=== PATIENT | female | born 1960 | race African-American/Black ===

== ENCOUNTER 2022-02-04 14:12 | Inpatient (IN) | payer MEDICAID, OTHER ==
[~2022-02-04] VITALS: Ht 157.5 cm; Wt 86.3 kg
[2022-02-04 14:55] LABS: Basophils # (auto) 0 10 ^3/uL (0-0.2); Basophils % (auto) 0.5 % (0.0-2.0); Eosinophils # (auto) 0.2 10 ^3/uL (0-0.8); Eosinophils % (auto) 3.7 % (0.0-7.0); Hematocrit 42.4 % (36.0-46.0); Hemoglobin 14.1 g/dL (12.2-16.2); Lymphocytes % (auto) 34.9 % (10.0-50.0); Mean Corpuscular Hemoglobin 28.9 pg (28.0-32.0); Mean Corpuscular Hgb Conc. 33.2 g/dL (32.0-36.0); Monocytes # (auto) 0.5 10 ^3/uL (0-1.3); Monocytes % (auto) 8.4 % (0.0-12.0); Neutrophils % (auto) 52.5 % (37.0-80.0); Nucleated Red Blood Cells % 0.1 %; Red Blood Cells 4.87 10^6/uL (4.0-5.20); Red Cell Distribution Width 13.9 % (11.8-14.3); White Blood Cell 5.6 10^3/uL (4.4-10.8)
[2022-02-04 15:19] LABS: Albumin 4.1 g/dL (3.4-5.0); BUN/Creatinine Ratio 13.4; Potassium 4.3 mmol/L (3.5-5.1)
[2022-02-04 15:23] LABS: Bilirubin, Total 0.7 mg/dL (0.2-1.0); Total Protein 7.6 g/dL (6.4-8.2)
[2022-02-04 15:53] LABS: INR 1.03 (0.9-1.15); Partial Thromboplastin Time 30.6 sec (24.6-33.4)
[2022-02-04] MEDS ORDERED: ONDANSETRON HCL 4 MG/2 ML VIAL IV PRN (18:30)
[2022-02-04] MEDS ORDERED: HYDROcodone-ACET 5/325MG TAB PO PRN (18:30)
[2022-02-04] MEDS ORDERED: DOCUSATE SOD 100 MG CAP PO PRN (18:30)
[2022-02-04] MEDS ORDERED: MORPHINE SULFATE INJ 2 MG/ml SYRG IV PRN (18:30)
[2022-02-04] MEDS ORDERED: ACETAMINOPHEN 325 MG TAB PO PRN (18:30)
[2022-02-04] MEDS ORDERED: NITROGLYCERIN 0.4 MG SL TAB SL PRN (18:30)
[2022-02-04] MEDS ORDERED: OXYB5TAB61 PO (21:01)
[2022-02-04] MEDS ORDERED: PARO30TA99 PO (21:01)
[2022-02-04] MEDS ORDERED: ATORVASTATIN 20 MG TAB PO SCH (22:00)
[2022-02-04] MEDS: OXYBUTYNIN CHL 5 MG TAB PO SCH (22:40)
[2022-02-05 05:00] VITALS: BP 106/56
[2022-02-05 06:56] LABS: Basophils # (auto) 0 10 ^3/uL (0-0.2); Basophils % (auto) 0.5 % (0.0-2.0); Eosinophils # (auto) 0.2 10 ^3/uL (0-0.8); Eosinophils % (auto) 3.8 % (0.0-7.0); Hematocrit 40.1 % (36.0-46.0); Hemoglobin 13.5 g/dL (12.2-16.2); Lymphocytes # (auto) 1.6 10 ^3/uL (0.4-5.4); Lymphocytes % (auto) 27.8 % (10.0-50.0); Mean Corpuscular Hgb Conc. 33.6 g/dL (32.0-36.0); Mean Corpuscular Volume 86.2 fL (80.0-100.0); Monocytes # (auto) 0.6 10 ^3/uL (0-1.3); Neutrophils # (auto) 3.3 10 ^3/uL (1.6-8.6); Neutrophils % (auto) 57.9 % (37.0-80.0); Nucleated Red Blood Cells % 0.1 %; Red Blood Cells 4.65 10^6/uL (4.0-5.20); Red Cell Distribution Width 13.8 % (11.8-14.3); White Blood Cell 5.6 10^3/uL (4.4-10.8)
[2022-02-05 07:00] LABS: BUN/Creatinine Ratio 17.1; Calcium 8.6 mg/dL (8.5-10.1)
[2022-02-05 09:21] VITALS: BP 114/68
[2022-02-05] MEDS ORDERED: ASPirin 81 mg TAB PO SCH (10:00)
[2022-02-05] MEDS ORDERED: ENOXAPARIN SOD 40 MG/0.4 ML SYRINGE SC SCH (10:00)
[2022-02-05] MEDS ORDERED: PARoxetine 20 MG TAB PO SCH (10:00)
[2022-02-05] MEDS: OXYBUTYNIN CHL 5 MG TAB PO SCH (11:07)
[2022-02-05] MEDS ORDERED: ASPI-325 PO (11:33)
[2022-02-05 13:00] VITALS: BP 116/63
== END 2022-02-05 17:17 | disposition home health service (06) | DRG 203 ==
LOC: ER 14:12 → TELE 18:29 → TELE-WESTW 23:00
PROVIDERS: ADMIT Nurse Practitioner Family; ATTEND Internal Medicine
DX: R07.89 Other chest pain (principal); E11.9 Type 2 diabetes mellitus without complications; E66.9 Obesity, unspecified; I10 Essential (primary) hypertension; Z80.9 Family history of malignant neoplasm, unspecified; Z87.891 Personal history of nicotine dependence; Z68.34 Body mass index [BMI] 34.0-34.9, adult
CPT/HCPCS: 36415; 71045; 80048; 80053; 83735; 84484; 85025; 85379; 85610; 85730; 93005; 93306; G0378

== ENCOUNTER 2024-04-19 08:21 | Inpatient (IN) | payer MEDICAID ==
[~2024-04-19] VITALS: Ht 157.5 cm; Wt 88.7 kg
[~2024-04-19 08:21] MED LIST: ASPI-325 PO; OXYB5TAB14 PO; PARO-181 PO
--- NOTE | 2024-04-19 09:05 | ED.PDOC ---
HPI Comments 64 year old female presents to the ED with chief complaint of chest pain. Patient reports that she has been experiencing chest pain with associated weakness, abdominal pain, BUSTOS, and excessive gas for the past few days. Patient relays that she has been previously seen in [facility] for heart related issues. Patient denies any N/V/D, dizziness, headache, SOB, or cough. Chief Complaint: Chest Pain Time Seen by MD: 09:02 Primary Care Provider: KIRSTIN Pro Notes: Nurses Notes, Medications, Allergies Allergies: Coded Allergies: NO KNOWN ALLERGIES (Unverified , 02/04/22) Home Meds Active Scripts Aspirin (Aspirin Low Dose) 81 Mg Tab, 81 MG PO DAILY, #30 TAB Prov:LEANNE CASTRO MD 02/05/22 Reported Medications Paroxetine HCl (Paroxetine Hydrochloride) 30 Mg Tab, 30 MG PO DAILY 02/04/22 Oxybutynin Chloride (Oxybutynin Chloride) 5 Mg Tab, 5 MG PO BID 02/04/22 Information Source: Patient Mode of Arrival: Ambulatory Severity: Moderate Timing: Hours Duration: Since onset Prehospital treatment: None Location: Substernal Radiation: No Radiation Onset: At Rest Cardiac Risk Factors: HTN, Diabetes PE Risk Factors: None History of: Similar pain in past Associated Signs and Symptoms: None Past Medical History PAST MEDICAL HISTORY: DM, HTN Surgical History: , Hernia Repair [employer] History: Denies all [employer] Hx Family History Family History: Reviewed,noncontributory to illness, Family hx of Cancer Social History Smoker: Non-Smoker Alcohol: Denies ETOH Use Drugs: Denies Drug Use Lives In: Home Constitutional: reports: weakness; denies: chills, diaphoresis, fatigue, fever, malaise, sweats, others EENTM: denies: blurred vision, double vision, ear bleeding, ear discharge, ear drainage, ear pain, ear ringing, eye pain, eye redness, hearing loss, mouth pain, mouth swelling, nasal discharge, nose bleeding, nose congestion, nose pain, photophobia, tearing, throat pain, throat swelling, voice changes, others Respiratory: denies: cough, hemoptysis, orthopnea, SOB at rest, shortness of breath, SOB with excertion, stridor, wheezing, others Cardiovascular: reports: chest pain; denies: dizzy spells, diaphoresis, Dyspnea on exertion, edema, irregular heart beat, left arm pain, lightheadedness, palpitations, PND, syncope, others Gastrointestinal: reports: abdominal pain; denies: abdomen distended, blood streaked bowels, constipated, diarrhea, dysphagia, difficulty swallowing, hematemesis, melena, nausea, poor appetite, poor fluid intake, rectal bleeding, rectal pain, vomiting, others Genitourinary: denies: abnormal vagina bleeding, burning, dyspareunia, dysuria, flank pain, frequency, hematuria, incontinence, pain, , vagina discharge, urgency, others Neurological: reports: headache; denies: dizziness, fainting, left sided numbness, left sided weakness, numbness, paresthesia, pre-existing deficit, right sided numbness, right sided weakness, seizure, speech problems, tingling, tremors, weakness, others Musculoskeletal: denies: back pain, gout, joint pain, joint swelling, muscle pain, muscle stiffness, neck pain, others Integumetry: denies: bruises, change in color, change in hair/nails, dryness, laceration, lesions, lumps, rash, wounds, others Allergic/Immunocompromised: denies: Difficulty Healing, Frequent Infections, Hives, Itching, others Hematologic/Lymphatic: denies: anemia, blood clots, easy bleeding, easy bruising, swollen glands, others Endocrine: denies: excessive hunger, excessive sweating, excessive thirst, excessive urination, flushing, intolerance to cold, intolerance to heat, unexplained weight gain, unexplained weight loss, others Psychiatric: denies: anxiety, bipolar disorder, depression, hopeless, panic disorder, schizophrenia, sleepless, suicidal, others All Other Systems: Reviewed and Negative Physical Exam General Appearance: Moderate Distress, Normal HEENT: Normal ENT Inspection, PERRL/EOMI Neck: Full Range of Motion, Non-Tender, Normal, Normal Inspection Respiratory: Chest Non-Tender, Lungs Clear, No Accessory Muscle Use, No Respiratory Distress, Normal Breath Sounds Cardiovascular: No Edema, No JVD, No Murmur, No Gallop, Normal Peripheral Pulses, Regular Rate/Rhythm Breast Exam: Deferred Gastrointestinal: No Organomegaly, Non Tender, No Pulsatile Mass, Normal Bowel Sounds, Soft Genitalia: Deferred Pelvic: Deferred Rectal: Deferred Extremities: No calf tenderness, Normal capillary refill, Normal inspection, Normal range of motion, Non-tender, No pedal edema Musculoskeletal : Apperance: Normal Neurologic: Alert, cable swager II-XII nml as Tested, No Motor Deficits, Normal Affect, Normal Mood, No Sensory Deficits Cerebellar Function: Normal Reflexes: Normal Skin: Dry, Normal Color, Warm Peripheral Pulses: 3+ Radial (R), 3+ Radial (L) Lymphatic: No Adenopathy Was a procedure done? Was a procedure done?: No CP Differential Dx Differential Diagnosis: A-fib, A-Flutter, Angina, Anxiety / Panic Attack, Atrial Dysrhythmia, Electrolyte Disorder X-Ray, Labs, Meds, VS Vital Signs Date Time Temp Pulse Resp B/P (MAP) Pulse Ox O2 Delivery O2 Flow Rate FiO2 04/19/24 13:10 74 18 145/77 (99) 97 04/19/24 10:01 98.4 75 17 131/91 (104) 97 98.4 04/19/24 10:01 75 17 97 Room Air 04/19/24 09:45 83 18 98 Room Air* 0 21 04/19/24 08:30 98.7 83 16 138/99 (112) 99 04/19/24 08:27 88 Lab Test 04/19/24 11:22 04/19/24 09:45 04/19/24 08:35 04/19/24 08:31 Range/Units Troponin I High Sensitivity < 3 L < 3 L < 3 L </=34 ng/L White Blood Count 5.6 4.4-10.8 10^3/uL Red Blood Count 4.64 4.0-5.20 10^6/uL Hemoglobin 14.0 12.2-16.2 g/dL Hematocrit 41.8 36.0-46.0 % Mean Corpuscular Volume 90.1 80.0-100.0 fL Mean Corpuscular Hemoglobin 30.1 28.0-32.0 pg Mean Corpuscular Hemoglobin Concent 33.4 32.0-36.0 g/dL Red Cell Distribution Width 13.8 11.8-14.3 % Platelet Count 235 140-450 10^3/uL Mean Platelet Volume 7.7 6.9-10.8 fL Neutrophils (%) (Auto) 54.7 37.0-80.0 % Lymphocytes (%) (Auto) 29.9 10.0-50.0 % Monocytes (%) (Auto) 7.8 0.0-12.0 % Eosinophils (%) (Auto) 7.2 H 0.0-7.0 % Basophils (%) (Auto) 0.4 0.0-2.0 % Neutrophils # (Auto) 3.1 1.6-8.6 10 ^3/uL Lymphocytes # (Auto) 1.7 0.4-5.4 10 ^3/uL Monocytes # (Auto) 0.4 0-1.3 10 ^3/uL Eosinophils # (Auto) 0.4 0-0.8 10 ^3/uL Basophils # (Auto) 0 0-0.2 10 ^3/uL Nucleated Red Blood Cells 0.1 % Sodium Level 144 136-145 mmol/L Potassium Level 4.4 3.5-5.1 mmol/L Chloride Level 108 H 98-107 mmol/L Carbon Dioxide Level 28 20-31 mmol/L Anion Gap 8 5-15 Blood Urea Nitrogen 8 L 9-23 mg/dL Creatinine 0.81 0.550-1.02 mg/dL Glomerular Filtration Rate Calc 82 >90 mL/min BUN/Creatinine Ratio 9.9 L 10.0-20.0 Serum Glucose 97 74-106 mg/dL Calcium Level 10.7 H 8.7-10.4 mg/dL Urine Color Light-yellow Yellow Urine Clarity Turbid H Clear Urine pH 7.0 5.0-9.0 Urine Specific [place] 1.021 1.001-1.035 Urine Protein Negative Negative Urine Ketones Negative Negative Urine Blood Negative Negative /uL Urine Nitrite Negative Negative Urine Bilirubin Negative Negative Urine Urobilinogen Normal Negative mg/dL Urine Leukocyte Esterase Negative Negative /uL Urine RBC <1 0 - 4 /hpf Urine WBC 3 0 - 5 /hpf Urine Squamous Epithelial Cells Mod <5 /hpf Urine Bacteria None seen None Seen /hpf Urine Mucus Few None Seen Urine Glucose Normal Normal mg/dL Current Medications Medications (Trade) Dose Ordered Sig/Konrad Route Start Time Stop Time Status Last Admin Pantoprazole Sodium (Protonix Tablet) 40 mg ONCE ONCE PO 04/19/24 10:45 04/19/24 10:46 DC 04/19/24 10:45 Patient alert pain Came in because of chest pain. Vitals stable. Answering all questions. Possible gastritis. Was given Protonix. EKG reviewed does not show any acute changes. WBC within normal limits. Hemoglobin within normal limits. Possibly will need stress test. Explained to the patient. Continue cardiac monitoring. Time of 1ST Reevaluation: 10:02 Reevaluation 1ST: Unchanged Patient Education/Counseling: Diagnosis, Treatment Family Education/Counseling: No Family Present Departure 1 Departure Time of Disposition: 15:39 Impression: Primary Impression: Chest pain of unknown etiology Additional Impression: Gastritis Qualified Codes: K29.00 - Acute gastritis without bleeding Disposition: ADMITTED INPATIENT Admit to: Med Surg Condition: Guarded Critical Care Note Critical Care Time?: Yes (45 min-critical care time only) Stability Stability form required: No Heart Score Heart Score: Heart Score Response (Comments) Value History Moderate Suspicious 1 EKG Normal 0 Age 45-64 1 Risk Factors 1 or 2 risk factors 1 Troponin Normal limit 0 Total 3 I personally scribed for JIN PRETTY MD ([email or web address]) on 04/19/24 at 09:05. Electronically submitted by Rogerio Moran ([email or web address]). JIN PRETTY MD Apr 19, 2024 09:05
[2024-04-19 09:45] VITALS: PULSE 83; RESP 18; O2SAT 98
[2024-04-19] MEDS ORDERED: PANTOPRAZOLE 40 MG/10 ML VIAL INJ IV ONE (10:15)
[2024-04-19] MEDS: PANTOPRAZOLE 40 MG TAB PO ONE (10:45)
[2024-04-19 10:51] LABS: Urine Bacteria None Seen /hpf (None Seen)
[2024-04-19 11:04] LABS: Basophils # (auto) 0 10 ^3/uL (0-0.2); Basophils % (auto) 0.4 % (0.0-2.0); Eosinophils # (auto) 0.4 10 ^3/uL (0-0.8); Eosinophils % (auto) 7.2 % (0.0-7.0); Hematocrit 41.8 % (36.0-46.0); Lymphocytes # (auto) 1.7 10 ^3/uL (0.4-5.4); Lymphocytes % (auto) 29.9 % (10.0-50.0); Mean Corpuscular Hemoglobin 30.1 pg (28.0-32.0); Mean Corpuscular Hgb Conc. 33.4 g/dL (32.0-36.0); Mean Corpuscular Volume 90.1 fL (80.0-100.0); Monocytes # (auto) 0.4 10 ^3/uL (0-1.3); Monocytes % (auto) 7.8 % (0.0-12.0); Neutrophils # (auto) 3.1 10 ^3/uL (1.6-8.6); Neutrophils % (auto) 54.7 % (37.0-80.0); Nucleated Red Blood Cells % 0.1 %; Platelet Count (auto) 235 10^3/uL (140-450); Potassium 4.4 mmol/L (3.5-5.1); Red Blood Cells 4.64 10^6/uL (4.0-5.20); Red Cell Distribution Width 13.8 % (11.8-14.3); Sodium 144 mmol/L (136-145); White Blood Cell 5.6 10^3/uL (4.4-10.8)
[2024-04-19 11:05] LABS: Anion Gap 8 (5-15); Carbon Dioxide 28 mmol/L (20-31)
[2024-04-19 11:05] LABS: Urine Blood Negative /uL (Negative); Urine Clarity Turbid (Clear); Urine Color Light-Yellow (Yellow); Urine Mucus FEW (None Seen); Urine Protein, UAD Negative (Negative); Urine Specific Gravity 1.021 (1.001-1.035); Urine Urobilinogen Normal (Negative); Urine WBC 3 /hpf (0 - 5)
[2024-04-19 11:10] LABS: BUN/Creatinine Ratio 9.9 (10.0-20.0); Glucose 97 mg/dL (74-106)
[2024-04-19 11:11] LABS: Blood Urea Nitrogen 8 mg/dL (9-23); Calcium 10.7 mg/dL (8.7-10.4); Chloride 108 mmol/L (98-107)
--- NOTE | 2024-04-19 12:29 | DVHHP2 ---
History of Present Illness Reason for Visit: Chest pain History of Present Illness Magi Moy is a 64-year-old female with past medical history of diabetes, hypertension, , and hernia repair who presents to the ED today for chest pain, weakness, abdominal pain, headache, and gas x 1 day. She reports th at she had a right knee tear5 years ago and utilizes a cane for ambulation. Patient also reports that she has been having some neck spasms that radiates down to the left arm and she was supposed to get steroid injections. He denies abdominal pain, nausea, vomiting, diarrhea, and back pain. Cardiovascular: HTN Endocrine: Diabetes Past Surgical History: , Hernia Repair Family History: Cancer Smoke: No ALCOHOL: occassional Drugs: None Lives: with Family Domestic Violence: Neg Review of Systems Constitutional: Yes: Weakness; No: Fever, Chills, Sweats, Malaise, Other Eyes: No: Pain, Vision change, Conjunctivae inflammation, Eyelid inflammation, Other, Redness ENT: No: Ear pain, Ear discharge, Nose pain, Nose discharge, Nose congestion, Mouth pain, Mouth swelling, Throat pain, Throat swelling, Other Respiratory: No: Cough, Dry, Shortness of breath, SOB with excertion, Wheezing, Hemoptysis, Pleuritic Pain, Sputum, Wheezing, Other Cardiovascular: Chest Pain; No: Palpitations, Orthopnea, Paroxysmal Noc. Dyspnea, Edema, Lt Headedness, Other Gastrointestinal: Abdominal Pain; No: Nausea, Vomiting, Diarrhea, Constipation, Melena, Hematochezia, Other Genitourinary: No Dysuria, No Frequency, No Incontinence, No Hematuria, No Retention, No Other Musculoskeletal: neck pain, arm pain; No: other, shoulder pain, back pain, hand pain, leg pain, foot pain Skin: No: Rash, Lesions, Jaundice, Bruising, Other Neurological: No: Weakness, Numbness, Incoordination, Change in speech, Confusion, Seizures, Other Allergies: Coded Allergies: NO KNOWN ALLERGIES (Unverified , 02/04/22) Exam Vital Signs Vital Signs Date Time Temp Pulse Resp B/P (MAP) Pulse Ox O2 Delivery O2 Flow Rate FiO2 04/19/24 10:01 98.4 75 17 131/91 (104) 97 98.4 04/19/24 10:01 Room Air 04/19/24 09:45 0 21 General Appearance: Alert, Oriented X3, Cooperative, No acute distress HEENT: Atraumatic, PERRLA, EOMI, Mucous membr. moist/pink Respiratory: Clear to auscultation, Normal air movement Cardiovascular: Regular rate, Normal S1, Normal S2, No murmurs Abdominal: Normal bowel sounds, Soft, No tenderness, No hepatospenomegaly, No masses Extremities: No clubbing, No cyanosis, No edema, Normal pulses, No tenderness/swelling Skin: No rashes, No breakdown, No significant lesion Neuro: Normal speech, Strength at 5/5 X4 ext, Normal tone Psych/Mental Status: Mental status NL, Mood NL Labs/Xrays Labs Test 04/19/24 11:22 04/19/24 08:35 04/19/24 08:31 Range/Units Troponin I High Sensitivity < 3 L </=34 ng/L White Blood Count 5.6 4.4-10.8 10^3/uL Red Blood Count 4.64 4.0-5.20 10^6/uL Hemoglobin 14.0 12.2-16.2 g/dL Hematocrit 41.8 36.0-46.0 % Mean Corpuscular Volume 90.1 80.0-100.0 fL Mean Corpuscular Hemoglobin 30.1 28.0-32.0 pg Mean Corpuscular Hemoglobin Concent 33.4 32.0-36.0 g/dL Red Cell Distribution Width 13.8 11.8-14.3 % Platelet Count 235 140-450 10^3/uL Mean Platelet Volume 7.7 6.9-10.8 fL Neutrophils (%) (Auto) 54.7 37.0-80.0 % Lymphocytes (%) (Auto) 29.9 10.0-50.0 % Monocytes (%) (Auto) 7.8 0.0-12.0 % Eosinophils (%) (Auto) 7.2 H 0.0-7.0 % Basophils (%) (Auto) 0.4 0.0-2.0 % Neutrophils # (Auto) 3.1 1.6-8.6 10 ^3/uL Lymphocytes # (Auto) 1.7 0.4-5.4 10 ^3/uL Monocytes # (Auto) 0.4 0-1.3 10 ^3/uL Eosinophils # (Auto) 0.4 0-0.8 10 ^3/uL Basophils # (Auto) 0 0-0.2 10 ^3/uL Nucleated Red Blood Cells 0.1 % Sodium Level 144 136-145 mmol/L Potassium Level 4.4 3.5-5.1 mmol/L Chloride Level 108 H 98-107 mmol/L Carbon Dioxide Level 28 20-31 mmol/L Anion Gap 8 5-15 Blood Urea Nitrogen 8 L 9-23 mg/dL Creatinine 0.81 0.550-1.02 mg/dL Glomerular Filtration Rate Calc 82 >90 mL/min BUN/Creatinine Ratio 9.9 L 10.0-20.0 Serum Glucose 97 74-106 mg/dL Calcium Level 10.7 H 8.7-10.4 mg/dL Urine Color Light-yellow Yellow Urine Clarity Turbid H Clear Urine pH 7.0 5.0-9.0 Urine Specific [place] 1.021 1.001-1.035 Urine Protein Negative Negative Urine Ketones Negative Negative Urine Blood Negative Negative /uL Urine Nitrite Negative Negative Urine Bilirubin Negative Negative Urine Urobilinogen Normal Negative mg/dL Urine Leukocyte Esterase Negative Negative /uL Urine RBC <1 0 - 4 /hpf Urine WBC 3 0 - 5 /hpf Urine Squamous Epithelial Cells Mod <5 /hpf Urine Bacteria None seen None Seen /hpf Urine Mucus Few None Seen Urine Glucose Normal Normal mg/dL Assessment/Plan Assessment/Plan Assessment: Rule out ACS History of diabetes Hypertension Hernia repair Right knee tear or 5 years ago Plan: Admit to tele Cardiology consult Pain management Antiemetics Cards cx GI ppx EKG TSH Lipid panel UA CXR ECHO HgbA1C ISS and accuchecks Diet as tolerated Monitor labs Home medications reconciled Plan discussed with: Patient Date of Service: Apr 19, 2024 Billing Provider: RAIZA YUEN Common Visit Codes: [id number] INP/OBS CARE (MOD) RAIZA YUEN Apr 19, 2024 12:29
[2024-04-19] MEDS ORDERED: MORPHINE SULFATE 4 MG/ML SYR/VIAL IV PRN (15:45)
[2024-04-19] MEDS ORDERED: NITROGLYCERIN 0.4 MG SL TAB SL PRN ×2 (15:45)
[2024-04-19] MEDS ORDERED: ONDANSETRON HCL 4 MG/2 ML VIAL IV PRN (15:45)
[2024-04-19] MEDS ORDERED: LORazepam 0.5 MG TAB PO PRN (15:45)
[2024-04-19] MEDS ORDERED: MORPHINE SULFATE INJ 2 MG/ml SYRG IV PRN (15:45)
[2024-04-19] MEDS ORDERED: DEXTROSE (50%) 50ML SYRG IV PRN (15:45)
[2024-04-19 16:18] VITALS: PULSE 60; RESP 18; O2SAT 96
[2024-04-19] MEDS: MAALOX PLUS or MAALOX 30 ML PO ONE (16:29)
[2024-04-19] MEDS: ASPirin 81 mg TAB PO SCH (16:29)
[2024-04-19 17:00] LABS: Triglycerides 106 mg/dL (< 150)
[2024-04-19 17:01] LABS: LDL Cholesterol 96 mg/dL (< 100)
[2024-04-19 17:02] LABS: Cholesterol 156 mg/dL (< 200); HDL Cholesterol 42 mg/dL (40-59)
[2024-04-19] MEDS: InsuLIN REG 1unit/0.01ml Soln (100units/ml) SC SCH (17:29)
[2024-04-19] MEDS: ACCU-CHEK COMFORT CURVE STRIP VI SCH (17:38)
--- NOTE | 2024-04-19 17:50 | DVH ---
EXAM: XY CHEST XRAY 1 VIEW TECHNIQUE: Single frontal chest radiograph CLINICAL HISTORY: chest pain COMPARISON: CHEST PORTABLE on DOS: 02/04/22 Findings/Impression: Frontal chest radiograph demonstrates no acute osseous or superficial soft tissue abnormalities. The trachea is midline. The cardiac silhouette and mediastinum are within normal limits. No pneumothorax, pleural effusions, or consolidations. Eventration of the right hemidiaphragm.
[2024-04-19 21:32] VITALS: BP 142/93; PULSE 81; RESP 21; TEMP 97.9; O2SAT 97
[2024-04-19] MEDS: ACETAMINOPHEN 325 MG TAB PO PRN (21:52)
[2024-04-19 21:57] VITALS: PULSE 84; RESP 21; O2SAT 97
[2024-04-20] VITALS (7 sets, daily range): BP systolic 102–135; BP diastolic 68–89; PULSE 76–89; RESP 12–16; TEMP 36.4; O2SAT 96–100
[2024-04-20] MEDS ORDERED: TRAZ-181 PO (01:44)
[2024-04-20 06:16] LABS: Basophils # (auto) 0 10 ^3/uL (0-0.2); Basophils % (auto) 0.3 % (0.0-2.0); Eosinophils # (auto) 0.4 10 ^3/uL (0-0.8); Eosinophils % (auto) 7.2 % (0.0-7.0); Hematocrit 40.3 % (36.0-46.0); Hemoglobin 13.7 g/dL (12.2-16.2); Lymphocytes # (auto) 1.3 10 ^3/uL (0.4-5.4); Lymphocytes % (auto) 25.5 % (10.0-50.0); Mean Corpuscular Hemoglobin 30.4 pg (28.0-32.0); Mean Corpuscular Volume 89.4 fL (80.0-100.0); Monocytes # (auto) 0.4 10 ^3/uL (0-1.3); Monocytes % (auto) 8.4 % (0.0-12.0); Neutrophils # (auto) 3.1 10 ^3/uL (1.6-8.6); Neutrophils % (auto) 58.6 % (37.0-80.0); Nucleated Red Blood Cells % 0.1 %; Platelet Count (auto) 215 10^3/uL (140-450); Red Blood Cells 4.51 10^6/uL (4.0-5.20); Red Cell Distribution Width 13.8 % (11.8-14.3); White Blood Cell 5.3 10^3/uL (4.4-10.8)
[2024-04-20 06:32] LABS: Anion Gap 9 (5-15); Carbon Dioxide 24 mmol/L (20-31); Potassium 4.2 mmol/L (3.5-5.1); Sodium 141 mmol/L (136-145)
[2024-04-20 06:33] LABS: Calcium 9.8 mg/dL (8.7-10.4)
[2024-04-20 06:38] LABS: BUN/Creatinine Ratio 10.9 (10.0-20.0); Glucose 90 mg/dL (74-106)
[2024-04-20 06:42] LABS: Blood Urea Nitrogen 7 mg/dL (9-23); Chloride 108 mmol/L (98-107)
--- NOTE | 2024-04-20 07:03 | ECG ---
[facility] Test Date: 2024-04-19 Test Time: 08:27:41 Pat Name: KRISHNA PENNINGTON Department: ER Room: [address] [place] [address] 8 Gender: F [employer] Consultant: MEAGAN : 1960 Requested By: JIN PRETTY Order Number: [id number] Reading MD: Cordell Hall Measurements Intervals [place] Rate: 88 P: 70 PA: 176 QRS: 60 QRSD: 70 T: 59 QT: 340 QTc: 412 Interpretive Statements Sinus rhythm Electronically Signed On 04-26-2024 13:54:22 PST by Cordell Hall Please click the below link to view image of tracing.
[2024-04-20] MEDS: DOCUSATE SOD 100 MG CAP PO SCH (09:07)
[2024-04-20] MEDS ORDERED: CHOL20007 PO (09:56)
[2024-04-20] MEDS ORDERED: METO25TA93 PO (09:56)
[2024-04-20] MEDS ORDERED: OXYB5TAB14 PO (09:56)
--- NOTE | 2024-04-20 11:34 | DVHINCON2 ---
Date Seen: Apr 20, 2024 Referring Physician FLORES Sumner Reason for Consultation Chest pain History of Present Illness This is a pleasant 64-year-old female who presented to the emergency room with a chief complaint of chest pain at 0130. Patient reports she developed lower abdominal pain radiating to the epigastric area subsequently to the chest area and described as substernal, burning/sharp in nature, nonradiating, and non- provoked. She underwent a 12 lead electrocardiogram revealing a normal sinus rhythm without discernible ST segment changes. Serial troponin levels are negative. Reports undergoing a recent stress test and transthoracic echocardiogram at Dr. Hall's office two months ago. Significant medical history includes hypertension, dyslipidemia, [id number] diabetes mellitus, GERD, chronic pain to right knee, and obesity. Past Medical History Past medical history reviewed. No other significant than mentioned above. Past Surgical History C-sections x2 Tonsillectomy Family History: Diabetes mellitus G8 MOTHER FH: cancer FH: cerebral infarction G8 MOTHER FH: heart failure G8 MOTHER G8 SISTER FH: myocardial infarction G8 MOTHER G8 FATHER FHx: lung disease G8 FATHER Family History Family history reviewed. Social History Denies the use of illicit drugs, alcohol, or tobacco use. Allergies: Coded Allergies: NO KNOWN ALLERGIES (Unverified , 02/04/22) Home Meds Active Scripts Aspirin (Aspirin Low Dose) 81 Mg Tab, 81 MG PO DAILY, #30 TAB Prov:LEANNE CASTRO MD 02/05/22 Reported Medications Cholecalciferol (VITAMIN D3) 2,000 Unit Tab, 5000 UNIT PO DAILY, TAB 04/20/24 Metoprolol Succinate (Metoprolol Succinate Er) 25 Mg Tab, 25 MG PO DAILY for 30 Days, MG 04/20/24 Oxybutynin Chloride (Oxybutynin Chloride) 5 Mg Tab, 10 MG PO DAILY, TAB 04/20/24 Trazodone HCl (Trazodone Hydrochloride) 50 Mg Tab, PO, TAB 04/20/24 Paroxetine HCl (Paroxetine Hydrochloride) 30 Mg Tab, 30 MG PO DAILY 02/04/22 Oxybutynin Chloride (Oxybutynin Chloride) 5 Mg Tab, 5 MG PO BID 02/04/22 Home Meds Home medications reviewed. Current Medications Current Medications Medications (Trade) Dose Ordered Sig/Konrad Route PRN Reason Start Time Stop Time Status Last Admin Aspirin 81 mg DAILY PO 04/19/24 15:45 04/20/24 09:07 Morphine Sulfate 2 mg Q30MP PRN IV FOR CHEST PAIN 04/19/24 15:45 Acetaminophen (Tylenol Tablet) 650 mg Q6HP PRN PO MILD PAIN (1-3 PAIN SCALE) 04/19/24 15:45 04/20/24 09:21 Lorazepam (Ativan Tablet) 0.5 mg Q6HP PRN PO ANXIETY 04/19/24 15:45 Docusate Sodium (Colace Capsule) 100 mg DAILY PO 04/20/24 10:00 04/20/24 09:07 Nitroglycerin (Ntrostat Sublingual) 0.4 mg Q5MINP PRN SL FOR CHEST PAIN 04/19/24 15:45 Ondansetron HCl (Zofran) 4 mg Q4HP PRN IV NAUSEA / VOMITING 04/19/24 15:45 Nitroglycerin (Ntrostat Sublingual) 0.4 mg Q5MINP PRN SL FOR CHEST PAIN 04/19/24 15:45 04/19/24 15:46 DC Morphine Sulfate 2 mg Q30M PRN IV FOR CHEST PAIN 04/19/24 15:45 04/19/24 15:46 DC Diagnostic Test (Pha) (Accu-Chek Comfort Curve T) 1 strip ACHS 04/19/24 17:00 04/20/24 06:10 Insulin Human Regular (InsuLIN R) ACHS SC 04/19/24 17:00 Dextrose 50 ml UD PRN IV Blood Sugar LESS THAN 60 04/19/24 15:45 Review of Systems Constitutional: No symptom reported Ears, Nose, & Throat: No symptom reported Eyes: No symptom reported Neurological: No symptoms reported Pulmonary/Respiratory: No symptom reported Cardiovascular: Chest pain Gastrointestinal: Abdominal pain Genitourinary: No symptom reported Musculoskeletal: No symptom reported Skin: No symptom reported Psychiatric: No symptom reported Endocrine: No symptom reported Hemotologic/Lymphatic: No symptom reported Vital Signs Vital Signs Date Time Temp Pulse Resp B/P (MAP) Pulse Ox O2 Delivery O2 Flow Rate FiO2 04/20/24 09:15 97.1 84 14 102/75 (84) 98 97.1 04/20/24 08:00 Room Air* 0 21 Physical Exam General Appearance: Cooperative. Well developed. Obese. In no acute distress Head Exam: Normal inspection Neck Exam: Normal inspection. Non-tender. Normal alignment Pulmonary/Respiratory: Chest non-tender. Clear bilateral breath sounds Cardiovascular/Chest: Regular rate and rhythm. S1, S2. NSR. No murmurs. No JVD. Peripheral Pulses: 2+ Radial (R). 2+ Radial (L). 2+ Pedal (R). 2+ Pedal (L) Abdominal Exam: Normal bowel sounds. Soft. Nontender. No hepatospenomegaly. No masses Ankle Exam: Negative ankle edema Lower extremities: Negative lower extremity edema Neuro/Mental Status: A&O x4. Coherent Thoughts/Psych: Normal thought pattern. Appropriate mood and affect. Good judgement and insight Appearance: In no acute distress Skin Exam: Normal inspection. Normal color. Warm. Dry Labs/Diagnostic Data Labs Test 04/20/24 06:07 04/20/24 05:26 04/19/24 16:18 04/19/24 08:35 Range/Units POC Glucose 104 70-106 mg/dl White Blood Count 5.3 4.4-10.8 10^3/uL Red Blood Count 4.51 4.0-5.20 10^6/uL Hemoglobin 13.7 12.2-16.2 g/dL Hematocrit 40.3 36.0-46.0 % Mean Corpuscular Volume 89.4 80.0-100.0 fL Mean Corpuscular Hemoglobin 30.4 28.0-32.0 pg Mean Corpuscular Hemoglobin Concent 34.0 32.0-36.0 g/dL Red Cell Distribution Width 13.8 11.8-14.3 % Platelet Count 215 140-450 10^3/uL Mean Platelet Volume 7.6 6.9-10.8 fL Neutrophils (%) (Auto) 58.6 37.0-80.0 % Lymphocytes (%) (Auto) 25.5 10.0-50.0 % Monocytes (%) (Auto) 8.4 0.0-12.0 % Eosinophils (%) (Auto) 7.2 H 0.0-7.0 % Basophils (%) (Auto) 0.3 0.0-2.0 % Neutrophils # (Auto) 3.1 1.6-8.6 10 ^3/uL Lymphocytes # (Auto) 1.3 0.4-5.4 10 ^3/uL Monocytes # (Auto) 0.4 0-1.3 10 ^3/uL Eosinophils # (Auto) 0.4 0-0.8 10 ^3/uL Basophils # (Auto) 0 0-0.2 10 ^3/uL Nucleated Red Blood Cells 0.1 % Sodium Level 141 136-145 mmol/L Potassium Level 4.2 3.5-5.1 mmol/L Chloride Level 108 H 98-107 mmol/L Carbon Dioxide Level 24 20-31 mmol/L Anion Gap 9 5-15 Blood Urea Nitrogen 7 L 9-23 mg/dL Creatinine 0.64 0.550-1.02 mg/dL Glomerular Filtration Rate Calc 100 >90 mL/min BUN/Creatinine Ratio 10.9 10.0-20.0 Serum Glucose 90 74-106 mg/dL Calcium Level 9.8 8.7-10.4 mg/dL Troponin I High Sensitivity < 3 L </=34 ng/L Triglycerides Level 106 < 150 mg/dL Cholesterol Level 156 < 200 mg/dL LDL Cholesterol 96 < 100 mg/dL HDL Cholesterol 42 40-59 mg/dL Thyroid Stimulating Hormone (TSH) 0.86 0.55-4.78 uIU/mL Hemoglobin A1c 5.8 H <5.7 % A1C Test 04/19/24 08:31 Range/Units Urine Color Light-yellow Yellow Urine Clarity Turbid H Clear Urine pH 7.0 5.0-9.0 Urine Specific [place] 1.021 1.001-1.035 Urine Protein Negative Negative Urine Ketones Negative Negative Urine Blood Negative Negative /uL Urine Nitrite Negative Negative Urine Bilirubin Negative Negative Urine Urobilinogen Normal Negative mg/dL Urine Leukocyte Esterase Negative Negative /uL Urine RBC <1 0 - 4 /hpf Urine WBC 3 0 - 5 /hpf Urine Squamous Epithelial Cells Mod <5 /hpf Urine Bacteria None seen None Seen /hpf Urine Mucus Few None Seen Urine Glucose Normal Normal mg/dL Assessment Noncardiac chest pain, likely GERD Hypertension Dyslipidemia [id number] diabetes mellitus Obesity Plan/Recommendation (Dr. Tobar) Records obtained from Dr. Hall's office. A myocardial perfusion study with SPECT from 01/17/2024 revealed a normal left ventricular size, wall motion, and function, with the evidence of infarction or of myocardium at ischemic risk. The left ventricular ejection fraction is 64%. A transthoracic echocardiogram from 11/25/23 revealed a sinus rhythm with normal chamber sizes. Valves appeared to be structurally normal. Mild aortic sclerosis with adequate aperture of the leaflets. EF of 50% with normal RV function. Mild posterolateral hypokinesis. Unremarkable Doppler. No pericardial effusion mas ses or vegetations. The RVSP was 25 mmHg. The patient also underwent an event monitor for one week on 11/2023 revealing a one time episode of atrial tachycardia x three beats with an ectopic atrial rhythm and PAC burden of 0.4% for which the patient was initiated on metoprolol. Given the aforementioned results, the patient will be initiated on a PPI. There is no further cardiac workup indicated at this time. Kindly call if in need to re-consult. Thank you for allowing us to participate in this patient's care. This medical document was created using an electronic medical record system with voice recognition software and computerized dictation system. Although this document has been carefully reviewed, there might still be some phonetic and typographical errors. Occasional wrong-word or ``sound-alike substitutions may have occurred due to the inherent limitations of voice recognition software. These areas are purely typographical due to imperfections of the software programs and do not reflect any compromise in the patient's medical care. Please read the chart carefully and recognize, using context, where these substitutions have occurred. Plan discussed with: Patient, Spouse, Daughter, Other Date of Service: Apr 20, 2024 Billing Provider: MEME TOBAR MD Cardiology Common Codes: [id number] INP/OBS CARE (High) HANNAH CARDENAS [facility] Apr 20, 2024 11:34
[2024-04-20] MEDS: PANTOPRAZOLE 40 MG TAB PO ONE (12:14)
--- NOTE | 2024-04-20 14:23 | DVHINCON2 ---
Date Seen: Apr 19, 2024 Referring Physician Hospitalist. Reason for Consultation I am assuming care of the patient from today onwards. History of Present Illness This is a pleasant 64-year-old female who presented to the emergency room with a chief complaint of chest pain . Patient has also reported lower abdominal pain as well as epigastric pain. Patient does have known history of diabetes mellitus type 2, hypertension, dyslipidemia and GERD. Patient's serial troponins are negative. Patient has recently underwent a stress test as well ec elida in Dr. Hall office. Past Medical History Diabetes mellitus type 2 Hypertension Dyslipidemia GERD Past Surgical History Hernia repair Family History: Diabetes mellitus G8 MOTHER FH: cancer FH: cerebral infarction G8 MOTHER FH: heart failure G8 MOTHER G8 SISTER FH: myocardial infarction G8 MOTHER G8 FATHER FHx: lung disease G8 FATHER Allergies: Coded Allergies: NO KNOWN ALLERGIES (Unverified , 02/04/22) Home Meds Active Scripts Pantoprazole Sodium Sesquihydr (Protonix) 40 Mg Tab, 40 MG PO DAILY, #30 TAB Prov:LUPE CARBALLO MD 04/20/24 Aspirin (Aspirin Low Dose) 81 Mg Tab, 81 MG PO DAILY, #30 TAB Prov:LEANNE CASTRO MD 02/05/22 Reported Medications Cholecalciferol (VITAMIN D3) 2,000 Unit Tab, 5000 UNIT PO DAILY, TAB 04/20/24 Metoprolol Succinate (Metoprolol Succinate Er) 25 Mg Tab, 25 MG PO DAILY for 30 Days, MG 04/20/24 Oxybutynin Chloride (Oxybutynin Chloride) 5 Mg Tab, 10 MG PO DAILY, TAB 04/20/24 Trazodone HCl (Trazodone Hydrochloride) 50 Mg Tab, PO, TAB 04/20/24 Paroxetine HCl (Paroxetine Hydrochloride) 30 Mg Tab, 30 MG PO DAILY 02/04/22 Oxybutynin Chloride (Oxybutynin Chloride) 5 Mg Tab, 5 MG PO BID 02/04/22 Current Medications Current Medications Medications (Trade) Dose Ordered Sig/Konrad Route PRN Reason Start Time Stop Time Status Last Admin Aspirin 81 mg DAILY PO 04/19/24 15:45 04/20/24 09:07 Morphine Sulfate 2 mg Q30MP PRN IV FOR CHEST PAIN 04/19/24 15:45 Acetaminophen (Tylenol Tablet) 650 mg Q6HP PRN PO MILD PAIN (1-3 PAIN SCALE) 04/19/24 15:45 04/20/24 09:21 Lorazepam (Ativan Tablet) 0.5 mg Q6HP PRN PO ANXIETY 04/19/24 15:45 Docusate Sodium (Colace Capsule) 100 mg DAILY PO 04/20/24 10:00 04/20/24 09:07 Nitroglycerin (Ntrostat Sublingual) 0.4 mg Q5MINP PRN SL FOR CHEST PAIN 04/19/24 15:45 Ondansetron HCl (Zofran) 4 mg Q4HP PRN IV NAUSEA / VOMITING 04/19/24 15:45 Nitroglycerin (Ntrostat Sublingual) 0.4 mg Q5MINP PRN SL FOR CHEST PAIN 04/19/24 15:45 04/19/24 15:46 DC Morphine Sulfate 2 mg Q30M PRN IV FOR CHEST PAIN 04/19/24 15:45 04/19/24 15:46 DC Diagnostic Test (Pha) (Accu-Chek Comfort Curve T) 1 strip ACHS 04/19/24 17:00 04/20/24 11:30 Insulin Human Regular (InsuLIN R) ACHS SC 04/19/24 17:00 Dextrose 50 ml UD PRN IV Blood Sugar LESS THAN 60 04/19/24 15:45 Pantoprazole Sodium (Protonix Tablet) 40 mg BID@0600,1700 PO 04/20/24 17:00 Review of Systems 12 review of system are negative besides mentioned above. Vital Signs Vital Signs Date Time Temp Pulse Resp B/P (MAP) Pulse Ox O2 Delivery O2 Flow Rate FiO2 04/20/24 13:16 97.6 77 12 126/81 (96) 100 97.6 04/20/24 08:00 Room Air* 0 21 Physical Exam HEENT pupils are reactive Neck is supple CV is S1-S2 regular rate and rhythm Respiratory are clear GI positive bowel sound Extremity no edema [employer] no motor deficit Labs/Diagnostic Data Labs Test 04/20/24 11:56 04/20/24 05:26 04/19/24 16:18 04/19/24 08:35 Range/Units POC Glucose 87 70-106 mg/dl White Blood Count 5.3 4.4-10.8 10^3/uL Red Blood Count 4.51 4.0-5.20 10^6/uL Hemoglobin 13.7 12.2-16.2 g/dL Hematocrit 40.3 36.0-46.0 % Mean Corpuscular Volume 89.4 80.0-100.0 fL Mean Corpuscular Hemoglobin 30.4 28.0-32.0 pg Mean Corpuscular Hemoglobin Concent 34.0 32.0-36.0 g/dL Red Cell Distribution Width 13.8 11.8-14.3 % Platelet Count 215 140-450 10^3/uL Mean Platelet Volume 7.6 6.9-10.8 fL Neutrophils (%) (Auto) 58.6 37.0-80.0 % Lymphocytes (%) (Auto) 25.5 10.0-50.0 % Monocytes (%) (Auto) 8.4 0.0-12.0 % Eosinophils (%) (Auto) 7.2 H 0.0-7.0 % Basophils (%) (Auto) 0.3 0.0-2.0 % Neutrophils # (Auto) 3.1 1.6-8.6 10 ^3/uL Lymphocytes # (Auto) 1.3 0.4-5.4 10 ^3/uL Monocytes # (Auto) 0.4 0-1.3 10 ^3/uL Eosinophils # (Auto) 0.4 0-0.8 10 ^3/uL Basophils # (Auto) 0 0-0.2 10 ^3/uL Nucleated Red Blood Cells 0.1 % Sodium Level 141 136-145 mmol/L Potassium Level 4.2 3.5-5.1 mmol/L Chloride Level 108 H 98-107 mmol/L Carbon Dioxide Level 24 20-31 mmol/L Anion Gap 9 5-15 Blood Urea Nitrogen 7 L 9-23 mg/dL Creatinine 0.64 0.550-1.02 mg/dL Glomerular Filtration Rate Calc 100 >90 mL/min BUN/Creatinine Ratio 10.9 10.0-20.0 Serum Glucose 90 74-106 mg/dL Calcium Level 9.8 8.7-10.4 mg/dL Troponin I High Sensitivity < 3 L </=34 ng/L Triglycerides Level 106 < 150 mg/dL Cholesterol Level 156 < 200 mg/dL LDL Cholesterol 96 < 100 mg/dL HDL Cholesterol 42 40-59 mg/dL Thyroid Stimulating Hormone (TSH) 0.86 0.55-4.78 uIU/mL Hemoglobin A1c 5.8 H <5.7 % A1C Test 04/19/24 08:31 Range/Units Urine Color Light-yellow Yellow Urine Clarity Turbid H Clear Urine pH 7.0 5.0-9.0 Urine Specific [place] 1.021 1.001-1.035 Urine Protein Negative Negative Urine Ketones Negative Negative Urine Blood Negative Negative /uL Urine Nitrite Negative Negative Urine Bilirubin Negative Negative Urine Urobilinogen Normal Negative mg/dL Urine Leukocyte Esterase Negative Negative /uL Urine RBC <1 0 - 4 /hpf Urine WBC 3 0 - 5 /hpf Urine Squamous Epithelial Cells Mod <5 /hpf Urine Bacteria None seen None Seen /hpf Urine Mucus Few None Seen Urine Glucose Normal Normal mg/dL Assessment This is a pleasant 64-year-old female who presented to the emergency room with a chief complaint of chest pain found to have 1. Chest pain noncardiac likely GERD 2. Diabetes mellitus type 2 3. Hypertension 4. Dyslipidemia -serial troponin are negative. Patient will be continued on Pepcid/Protonix. Discharge plan once cardiology clears. Plan discussed with: Patient Date of Service: Apr 19, 2024 Billing Provider: LUPE CARBALLO MD Common Visit Codes: NOT BILLABLE LUPE CARBALLO MD Apr 20, 2024 14:23
[2024-04-20] MEDS ORDERED: PANT40TA2 PO (14:25)
[2024-04-20] MEDS: PANTOPRAZOLE 40 MG TAB PO SCH (17:00)
[2024-04-23 09:21] LABS: Hepatitis B Surface Antigen Negative (Negative)
[2024-04-23 09:43] LABS: Hepatitis C Antibody Negative (Negative)
--- NOTE | 2024-04-25 16:55 | DVHDS2 ---
Discharge Summary Date of Admission Apr 19, 2024 at 15:33 Date of Discharge: Apr 20, 2024 Labs/Diagnostic Data: Laboratory Results Test 04/20/24 11:56 04/20/24 05:26 04/19/24 16:18 04/19/24 08:35 POC Glucose 87 mg/dl (70-106) White Blood Count 5.3 10^3/uL (4.4-10.8) Red Blood Count 4.51 10^6/uL (4.0-5.20) Hemoglobin 13.7 g/dL (12.2-16.2) Hematocrit 40.3 % (36.0-46.0) Mean Corpuscular Volume 89.4 fL (80.0-100.0) Mean Corpuscular Hemoglobin 30.4 pg (28.0-32.0) Mean Corpuscular Hemoglobin Concent 34.0 g/dL (32.0-36.0) Red Cell Distribution Width 13.8 % (11.8-14.3) Platelet Count 215 10^3/uL (140-450) Mean Platelet Volume 7.6 fL (6.9-10.8) Neutrophils (%) (Auto) 58.6 % (37.0-80.0) Lymphocytes (%) (Auto) 25.5 % (10.0-50.0) Monocytes (%) (Auto) 8.4 % (0.0-12.0) Eosinophils (%) (Auto) 7.2 % (0.0-7.0) Basophils (%) (Auto) 0.3 % (0.0-2.0) Neutrophils # (Auto) 3.1 10 ^3/uL (1.6-8.6) Lymphocytes # (Auto) 1.3 10 ^3/uL (0.4-5.4) Monocytes # (Auto) 0.4 10 ^3/uL (0-1.3) Eosinophils # (Auto) 0.4 10 ^3/uL (0-0.8) Basophils # (Auto) 0 10 ^3/uL (0-0.2) Nucleated Red Blood Cells 0.1 % Sodium Level 141 mmol/L (136-145) Potassium Level 4.2 mmol/L (3.5-5.1) Chloride Level 108 mmol/L (98-107) Carbon Dioxide Level 24 mmol/L (20-31) Anion Gap 9 (5-15) Blood Urea Nitrogen 7 mg/dL (9-23) Creatinine 0.64 mg/dL (0.550-1.02) Glomerular Filtration Rate Calc 100 mL/min (>90) BUN/Creatinine Ratio 10.9 (10.0-20.0) Serum Glucose 90 mg/dL (74-106) Calcium Level 9.8 mg/dL (8.7-10.4) Hepatitis B Surface Antigen Negative (Negative) Hepatitis C Antibody Negative (Negative) Troponin I High Sensitivity < 3 ng/L (</=34) Triglycerides Level 106 mg/dL (< 150) Cholesterol Level 156 mg/dL (< 200) LDL Cholesterol 96 mg/dL (< 100) HDL Cholesterol 42 mg/dL (40-59) Thyroid Stimulating Hormone (TSH) 0.86 uIU/mL (0.55-4.78) Hemoglobin A1c 5.8 % A1C (<5.7) Test 04/19/24 08:31 Urine Color Light-yellow (Yellow) Urine Clarity Turbid (Clear) Urine pH 7.0 (5.0-9.0) Urine Specific [place] 1.021 (1.001-1.035) Urine Protein Negative (Negative) Urine Ketones Negative (Negative) Urine Blood Negative /uL (Negative) Urine Nitrite Negative (Negative) Urine Bilirubin Negative (Negative) Urine Urobilinogen Normal mg/dL (Negative) Urine Leukocyte Esterase Negative /uL (Negative) Urine RBC <1 /hpf (0 - 4) Urine WBC 3 /hpf (0 - 5) Urine Squamous Epithelial Cells Mod /hpf (<5) Urine Bacteria None seen /hpf (None Seen) Urine Mucus Few (None Seen) Urine Glucose Normal mg/dL (Normal) Other Laboratory Tests 04/20/24 05:26 Brief Hx & Hospital Course: 82-year-old female with a known history of diabetes mellitus type 2, hypertension, dyslipidemia, GERD initially presented to hospital with chest pain eventually patient was admitted cardiology was consulted. Patient has recently had a stress test and troponins were negative. Patient was cleared by Cardiology. Patient's chest pain was suspected secondary to GERD. Condition at Discharge: Stable Final Diagnosis/Problems List Noncardiac chest pain, likely GERD Hypertension Dyslipidemia Mpc-ikyrmeu-vpwgasclv diabetes mellitus Obesity Discharge Disposition: Home SNF Discharge Will this Physician continue t: No Discharge Instruct/Medications Diet: Cardiac 2g Na,low cholest Diet comment: One thousand eight hundred ADA diet Activity: No Restrictions, As Tolerated Follow Up/Referral: Follow up with the PCP in 1-2 weeks Medications: Resume home medications, add Protonix 40 mg p.o. daily Discharge Statement: "Patient was advised to return to the ER or call 911 if any headaches, dizziness, shortness of breath, chest pain, abdominal pain, bleeding, fevers, or worsening of medical condition. Patient was counseled about treatment plan, medications, possible side effects, patientverbalized understanding. All questions were answered to the best of my ability. This discharge took greater then 30 minutes in planning, reviewing documentation, counseling the patient, and discussing with other team members." ASSESSMENT ASSESSMENT Assessment Noncardiac chest pain, likely GERD Hypertension Dyslipidemia Fkw-qdnerlc-ohwirmwph diabetes mellitus Obesity Date of Service: Apr 20, 2024 Billing Provider: LUPE CARBALLO MD Common Visit Codes: NOT BILLABLE LUPE CARBALLO MD Apr 25, 2024 16:55
--- NOTE | 2024-04-26 11:00 | DVHSR ---
APPROVED REPORT EXAM: Two-dimensional and M-mode echocardiogram with Doppler and color Doppler. Blood Pressure: 133/86 mmHg INDICATION Chest Pain RISK FACTORS Height: 5'2", Weight: 195 DIMENSIONS LVDd4.7 (3.8-5.7cm)LA (2D)3.8 (1.9-4.0cm)Aortic Root2.6 (2.0-3.7cm) LVDs3.4 (2.5-4.0cm)LA (MM) (1.9-4.0cm)Aortic Cusp Exc1.7 (1.5-2.0cm) EF (%) 55.0 (55-70%)Rt. Atrium3.8 (1.9-4.0cm)Asc. Aorta3.1 cm IVSd0.9 (0.7-1.1cm)RV (D) (1.8-2.4cm) PWd1.1 (0.7-1.1cm) Mitral Valve MitralMitral Stenosis E wave0.40m/sMV Mean GR.mmHg A wave0.87m/sMV Peak GR.mmHg E/A ratio0.52D MVAcm2 DECEL [id number] 1/2 [place] Aortic Valve Aortic ValveAortic Stenosis V11.02m/Jennyfer Mean GR.6mmHg V21.70m/Jennyfer Peak GR.12mmHg LVOT Diameter2.0 (1.8-2.4cm)Doppler AVA1.88cm2 Pulmonic Valve V20.80m/s Other Information Quality : Technically LimitedRhythm : Technically limited study due to body habitus. Conclusion Technically good study. Sinus rhythm. Normal chamber sizes. Normal valves. EF of 60% with normal RV function. Dopplers unremarkable. No pericardial effusion masses or vegetations
== END 2024-04-20 18:10 | disposition home or self-care (01) | DRG 243 ==
LOC: ER 08:21 → TELE 15:33 → TELE-E-ADS 21:27
PROVIDERS: ATTEND Internal Medicine
DX: K21.9 Gastro-esophageal reflux disease without esophagitis (principal); E11.9 Type 2 diabetes mellitus without complications; E66.9 Obesity, unspecified; E78.5 Hyperlipidemia, unspecified; I10 Essential (primary) hypertension; K29.70 Gastritis, unspecified, without bleeding; G89.29 Other chronic pain; Z82.3 Family history of stroke; Z82.49 Family history of ischemic heart disease and other diseases of the circulatory system; Z83.3 Family history of diabetes mellitus; Z79.84 Long term (current) use of oral hypoglycemic drugs; Z68.35 Body mass index [BMI] 35.0-35.9, adult
CPT/HCPCS: 36415; 71045; 80048; 80061; 81001; 82962; 83036; 84443; 84484; 85025; 86803; 87340; 93005; 93306; 99291; G0378